=== PATIENT | female | born 1945 | race Caucasian/White ===

== ENCOUNTER 2023-07-17 18:17 | Emergency (ER) | payer MEDICARE ==
[~2023-07-17] VITALS: Ht 162.6 cm; Wt 70.5 kg
[2023-07-17] MEDS ORDERED: ATOR20TA PO (18:34)
[2023-07-17] MEDS ORDERED: MORP-130 PO (18:34)
[2023-07-17] MEDS ORDERED: FURO40 PO (18:34)
[2023-07-17] MEDS: ACETAMINOPHEN 500 MG TABLET PO ONE (22:46)
[2023-07-17] MEDS: BACITRACIN 0.9 GM PACKET OINTMENT TP ONE (22:46)
[2023-07-17 23:00] VITALS: BP 134/74; PULSE 73; RESP 18; TEMP 97.3
== END 2023-07-17 23:00 | disposition home or self-care (01) ==
LOC: EMS 18:23
DX: S90.31XA Contusion of right foot, initial encounter (principal); E78.00 Pure hypercholesterolemia, unspecified; I11.9 Hypertensive heart disease without heart failure; Z88.0 Allergy status to penicillin; W22.8XXA Striking against or struck by other objects, initial encounter; Y93.89 Activity, other specified; Y92.512 Supermarket, store or market as the place of occurrence of the external cause; Y99.8 Other external cause status
CPT/HCPCS: 99283

== ENCOUNTER → 2023-09-17 | Outpatient (CLI) | payer MEDICARE ==
[~2023-09-17] VITALS: Ht 157.5 cm; Wt 58.1 kg
[~2023-09-17] MED LIST: ACET-2247 PO; ALLO-45 PO; ASPI-1450 PO; ATOR20TA PO; CEPH-558 PO; COLC-3 PO; DOXY-354 PO; FAMO20 PO; FERR325T27 PO; FOLI-130 PO; FURO-151 PO; MAVA5CAP PO; METO25XL PO; MORP-130 PO; MORP15TA70 PO; OLAN5TAB52 PO; OMEG-136 PO; QUET25TA PO; THYR30TA24 PO
[2023-09-17 13:18] VITALS: BP 123/64; PULSE 80; RESP 18; TEMP 98.4; O2SAT 94
== END | disposition home or self-care (01) ==
LOC: SRCNTR 12:55
PROVIDERS: ATTEND Hospitalist
DX: M17.0 Bilateral primary osteoarthritis of knee (principal); R60.0 Localized edema; E78.5 Hyperlipidemia, unspecified; E03.9 Hypothyroidism, unspecified; M10.9 Gout, unspecified; N18.9 Chronic kidney disease, unspecified; D63.1 Anemia in chronic kidney disease; R53.81 Other malaise; Z79.82 Long term (current) use of aspirin; Z88.0 Allergy status to penicillin; Z79.899 Other long term (current) drug therapy
CPT/HCPCS: G0463

== ENCOUNTER 2023-09-26 11:39 | Emergency (ER) | payer MEDICARE ==
[~2023-09-26] VITALS: Ht 154.9 cm; Wt 68.2 kg
[~2023-09-26 11:39] MED LIST changes: -CEPH-558 PO; -DOXY-354 PO; -FURO-151 PO; -MAVA5CAP PO; -METO25XL PO; -OMEG-136 PO
[2023-09-26 12:00] VITALS: TEMP 96.9
[2023-09-26] MEDS: ACETAMINOPHEN 325 MG TABLET PO ONE (12:34)
[2023-09-26] MEDS: VANCOMYCIN 1.25 GM/WATER(PEG) 250 ML IV ONE (12:34)
[2023-09-26 12:44] LABS: BASOPHILS % (AUTO) 0.4 % (0.0-2.0); EOSINOPHILS % (AUTO) 2.6 % (1.0-6.0); HEMATOCRIT 34.9 % (36-46); HEMOGLOBIN 11.7 g/dL (12.0-16.0); LYMPHOCYTES # (AUTO) 1.3 K/uL (1.0-4.8); LYMPHOCYTES % (AUTO) 32.4 % (22.0-44.0); MEAN CORPUSCULAR HEMOGLOBIN 34.5 pg (26.0-34.0); MEAN CORPUSCULAR HGB CONC 33.4 G/dL (31.0-37.0); MEAN CORPUSCULAR VOLUME 103 fL (80-100); MONOCYTES # (AUTO) 0.4 K/uL (0.1-1.0); MONOCYTES % (AUTO) 9.4 % (2.0-9.0); NEUTROPHILS # (AUTO) 2.2 K/uL (1.8-7.7); NEUTROPHILS % (AUTO) 55.2 % (40.0-70.0); PLATELET COUNT (AUTO) 205 K/uL (150-450); RED BLOOD CELL COUNT(AUTO) 3.38 MIL/uL (4.00-5.20); RED CELL DISTRIBUTION WIDTH 14.2 % (11.5-14.5)
[2023-09-26 12:46] LABS: RBC MORPHOLOGY COMMENT ABNORMAL RBC MORPH
[2023-09-26 12:53] LABS: ANION GAP 5 mmol/L (8-16); CARBON DIOXIDE 37 mmol/L (22-29); CHLORIDE 104 mmol/L (98-107); CREATININE 0.89 mg/dL (0.60-1.30); GLOMERULAR FILTR. RATE CALC > 60 mL/min (>60); GLUCOSE,RANDOM 115 mg/dL (70-110); POTASSIUM 3.4 mmol/L (3.5-5.1); SODIUM SERUM 146 mmol/L (136-145); UREA NITROGEN, BLOOD 14 mg/dL (7-18)
[2023-09-26 13:02] LABS: LACTIC ACID 0.8 mmol/L (0.4-2.0)
[2023-09-26 18:00] VITALS: BP 121/70; PULSE 68; RESP 16
== END 2023-09-26 18:40 | disposition admitted as inpatient to this hospital (09) ==
LOC: EMS 11:43
DX: L03.116 Cellulitis of left lower limb (principal); L03.115 Cellulitis of right lower limb; E78.00 Pure hypercholesterolemia, unspecified; I10 Essential (primary) hypertension; K21.9 Gastro-esophageal reflux disease without esophagitis; M10.9 Gout, unspecified; Z88.0 Allergy status to penicillin
CPT/HCPCS: 99284; 96365; 80048; 83605; 85025; 87040; 36415; Q9967

== ENCOUNTER 2023-10-06 10:22 | Emergency (ER) | payer MEDICARE ==
[~2023-10-06] VITALS: Ht 154.9 cm; Wt 68.2 kg
[2023-10-06 10:33] VITALS: TEMP 97.6
[2023-10-06] MEDS ORDERED: MAVA5CAP PO (10:36)
[2023-10-06] MEDS ORDERED: METO25XL PO (10:36)
[2023-10-06] MEDS ORDERED: OMEG-136 PO (10:36)
[2023-10-06] MEDS ORDERED: FURO-151 PO ×2 (10:36→13:54)
[2023-10-06 11:31] LABS: BASOPHILS % (AUTO) 0.8 % (0.0-2.0); EOSINOPHILS % (AUTO) 2.3 % (1.0-6.0); HEMATOCRIT 31.5 % (36-46); HEMOGLOBIN 10.5 g/dL (12.0-16.0); LYMPHOCYTES # (AUTO) 1.6 K/uL (1.0-4.8); LYMPHOCYTES % (AUTO) 27.4 % (22.0-44.0); MEAN CORPUSCULAR HEMOGLOBIN 34.5 pg (26.0-34.0); MEAN CORPUSCULAR HGB CONC 33.4 G/dL (31.0-37.0); MEAN CORPUSCULAR VOLUME 103 fL (80-100); MONOCYTES # (AUTO) 0.5 K/uL (0.1-1.0); MONOCYTES % (AUTO) 9.2 % (2.0-9.0); NEUTROPHILS # (AUTO) 3.5 K/uL (1.8-7.7); NEUTROPHILS % (AUTO) 60.3 % (40.0-70.0); PLATELET COUNT (AUTO) 214 K/uL (150-450); RED BLOOD CELL COUNT(AUTO) 3.05 MIL/uL (4.00-5.20); RED CELL DISTRIBUTION WIDTH 14.1 % (11.5-14.5); WHITE BLOOD COUNT (AUTO) 5.7 K/uL (4.5-11.0)
[2023-10-06 11:36] LABS: RBC MORPHOLOGY COMMENT ABNORMAL RBC MORPH
[2023-10-06 11:46] LABS: ANION GAP 5 mmol/L (8-16); B-TYPE NATRIURETIC PEPTIDE 51 pg/mL (0-100); CALCIUM, TOTAL 9.4 mg/dL (8.8-10.5); CARBON DIOXIDE 32 mmol/L (22-29); CHLORIDE 105 mmol/L (98-107); CREATININE 1.06 mg/dL (0.60-1.30); GLOMERULAR FILTR. RATE CALC 50 mL/min (>60); GLUCOSE,RANDOM 91 mg/dL (70-110); POTASSIUM 3.7 mmol/L (3.5-5.1); SODIUM SERUM 142 mmol/L (136-145); UREA NITROGEN, BLOOD 22 mg/dL (7-18)
[2023-10-06 11:58] LABS: LACTIC ACID 1.6 mmol/L (0.4-2.0); TROPONIN I-HIGH SENSITIVITY 14 ng/L (<51)
[2023-10-06 13:26] VITALS: BP 115/53; PULSE 68; RESP 14
[2023-10-06] MEDS ORDERED: CEPH-558 PO (13:54)
== END 2023-10-06 14:51 | disposition home or self-care (01) ==
LOC: EMS 10:25
DX: L03.116 Cellulitis of left lower limb (principal); L03.115 Cellulitis of right lower limb; E78.00 Pure hypercholesterolemia, unspecified; E03.9 Hypothyroidism, unspecified; I11.9 Hypertensive heart disease without heart failure; Z88.0 Allergy status to penicillin
CPT/HCPCS: 71045; 80048; 83605; 83880; 84484; 85025; 87040; 93005; 99285; 36415-L1; 36415-TC

== ENCOUNTER 2023-10-21 21:04 | Emergency (ER) | payer MEDICARE ==
[~2023-10-21] VITALS: Ht 157.5 cm; Wt 63.6 kg
[~2023-10-21 21:04] MED LIST changes: +CEPH-558 PO; +FURO-151 PO; +MAVA5CAP PO; +METO25XL PO; +OMEG-136 PO
[2023-10-21 21:37] VITALS: BP 160/90; PULSE 83; RESP 18; TEMP 97.7
[2023-10-21] MEDS ORDERED: DOXY-354 PO (23:06)
[2023-10-21] MEDS: OxyCODONE HCL/ACETAMINOPHEN 5-325 MG TABLET PO ONE (23:16)
[2023-10-21] MEDS: DOXYCYCLINE HYCLATE 100 MG TABLET PO ONE (23:16)
== END 2023-10-22 00:14 | disposition home or self-care (01) ==
LOC: EMS 21:04
DX: L08.89 Other specified local infections of the skin and subcutaneous tissue (principal); K21.9 Gastro-esophageal reflux disease without esophagitis; I10 Essential (primary) hypertension; Z88.0 Allergy status to penicillin
CPT/HCPCS: 99283

== ENCOUNTER 2023-11-01 18:57 | Emergency (ER) | payer MEDICARE ==
[~2023-11-01] VITALS: Ht 167.6 cm; Wt 75.0 kg
[~2023-11-01 18:57] MED LIST changes: +DOXY-354 PO
[2023-11-01 20:38] LABS: COVID AG,FIA SOURCE NASAL SWAB
[2023-11-01 20:41] VITALS: BP 142/90; PULSE 88; RESP 18; TEMP 97.8
[2023-11-01 20:56] LABS: INFLUENZA TYPE A NEGATIVE FOR TYPE A (NEGATIVE); INFLUENZA TYPE B NEGATIVE FOR TYPE B (NEGATIVE)
[2023-11-01 21:41] LABS: SARS-COV2 (COVID) ANTIGEN,FIA Positive (Negative)
== END 2023-11-02 | disposition home or self-care (01) ==
LOC: EMS 18:57
DX: U07.1 COVID-19 (principal); I10 Essential (primary) hypertension; E78.00 Pure hypercholesterolemia, unspecified; K21.9 Gastro-esophageal reflux disease without esophagitis; M10.9 Gout, unspecified; E03.9 Hypothyroidism, unspecified; Z88.0 Allergy status to penicillin
CPT/HCPCS: 87804; 99283

== ENCOUNTER → 2023-11-18 | Outpatient (CLI) | payer MEDICARE ==
[2023-11-18 13:42] VITALS: BP 127/79; PULSE 76; RESP 17; TEMP 98.5; O2SAT 95
== END | disposition home or self-care (01) ==
LOC: SRCNTR 12:54
PROVIDERS: ATTEND Hospitalist
DX: R22.43 Localized swelling, mass and lump, lower limb, bilateral (principal); I89.0 Lymphedema, not elsewhere classified; G62.9 Polyneuropathy, unspecified; R01.1 Cardiac murmur, unspecified; Z98.890 Other specified postprocedural states; Z88.0 Allergy status to penicillin; Z79.82 Long term (current) use of aspirin; Z79.899 Other long term (current) drug therapy
CPT/HCPCS: G0463; Z7500